=== PATIENT | male | born 1975 | race Caucasian/White ===

== ENCOUNTER 2017-11-09 10:47 | Emergency (ER) | payer MEDICAID ==
[~2017-11-09] VITALS: Ht 177.8 cm; Wt 78.0 kg
[2017-11-09 11:01] VITALS: Ht 177.8 cm; Wt 78.0 kg
[2017-11-09 13:36] VITALS: BP 132/68
== END 2017-11-09 12:30 | disposition home or self-care (01) ==
LOC: ED 10:47
DX: M10.071 Idiopathic gout, right ankle and foot (principal)

== ENCOUNTER 2018-10-17 15:40 | Emergency (ER) | payer SELFPAY ==
[~2018-10-17] VITALS: Ht 167.6 cm; Wt 79.4 kg
[2018-10-17 15:46] VITALS: Ht 167.6 cm; Wt 79.4 kg
[2018-10-17 18:23] VITALS: BP 108/73
== END 2018-10-17 18:23 | disposition home or self-care (01) ==
LOC: ED 15:40
DX: M10.071 Idiopathic gout, right ankle and foot (principal); M10.061 Idiopathic gout, right knee
CPT/HCPCS: J1885; J7512